=== PATIENT | male | born 1960 | race Caucasian/White ===

== ENCOUNTER 2017-04-11 11:56 | Day surgery (SDC) | payer OTHER ==
[2017-04-11] MEDS ORDERED: LACTATED RINGERS 1,000 ML IV ONE (12:24)
[2017-04-11] MEDS ORDERED: fentaNYL 100 MCG/2 ML VIAL IVP ONE (14:14)
[2017-04-11] MEDS ORDERED: MIDAZOLAM 2 MG/2 ML VIAL IVP ONE (14:14)
== END 2017-04-11 11:57 | disposition home or self-care (01) ==
PROC: 0DBM8ZX Excision of Descending Colon, Via Natural or Artificial Opening Endoscopic, Diagnostic (ICD-10-PCS; 2017-04-11)
PROC: 0DBK8ZX Excision of Ascending Colon, Via Natural or Artificial Opening Endoscopic, Diagnostic (ICD-10-PCS; principal; 2017-04-11 13:00)
DX: Z12.11 Encounter for screening for malignant neoplasm of colon (principal); D12.2 Benign neoplasm of ascending colon; D12.4 Benign neoplasm of descending colon; K64.8 Other hemorrhoids; F32.9 Major depressive disorder, single episode, unspecified; E78.00 Pure hypercholesterolemia, unspecified; G47.30 Sleep apnea, unspecified; Z87.891 Personal history of nicotine dependence
CPT/HCPCS: 45380; 45385; J7120

== ENCOUNTER 2018-04-22 07:22 | Outpatient (CLI) | payer OTHER ==
--- NOTE | 2018-04-22 12:12 | CT Report ---
CT CHEST WITHOUT CONTRAST: 04/22/2018 CLINICAL INDICATION: A 57-year-old asymptomatic patient with [id number] history of smoking, quit within the last 15 years, for screening. TECHNIQUE: Axial CT images of the chest were obtained without intravenous contrast, using low dose screening technique. COMPARISON: No previous chest CT is available for comparison. FINDINGS: The heart and great vessels are unremarkable. No hilar or mediastinal lymphadenopathy is present. The lungs demonstrate emphysema. No suspicious pulmonary nodule or mass lesion is present. No effusion or pneumothorax. Limited evaluation of the upper abdominal structures demonstrates normal adrenal glands. Osseous structures demonstrate degenerative changes. IMPRESSION: EMPHYSEMA. NO SUSPICIOUS PULMONARY NODULE OR MASS LESION. RECOMMENDATION: Continue annual screening with low dose CT in 12 months. LUNG RADS CATEGORY 1 - NEGATIVE. CT DOSE REDUCTION STATEMENT In accordance with CT protocol optimization, one or more of the following dose reduction techniques were utilized for this exam: automated exposure control, adjustment of mA and/or KV based on patient size, or use of iterative reconstructive technique. TD: 04/22/2018 12:00
--- NOTE | 2018-04-24 10:20 | Ultrasound Report ---
AORTA SCREENIN04/22/2018 CLINICAL INDICATION: Smoking history. TECHNIQUE: Real-time sonographic imaging was performed by the matcher through the aorta. Multiple hospital insurance representative static images were saved for review. FINDINGS: The abdominal aorta is normal in caliber, measuring 2.3 cm proximally , 2.0 cm in the mid portion, and 2.1 cm distally. The iliacs are normal in caliber. No free fluid is present. IMPRESSION: NO EVIDENCE OF ABDOMINAL AORTIC ANEURYSM. TD: 04/22/2018 11:19 MTDD
== END 2018-04-22 07:23 | disposition home or self-care (01) ==
LOC: DI 07:22
PROVIDERS: ATTEND Physician Assistant
DX: J43.9 Emphysema, unspecified (principal); Z87.891 Personal history of nicotine dependence
CPT/HCPCS: 76706; G0297

== ENCOUNTER 2018-05-29 08:39 | Outpatient (CLI) | payer OTHER ==
--- NOTE | 2018-05-29 09:26 | XRAY Report ---
Procedure Date: 05/29/2018 Accession Number: [id number] / [id number] Procedure: XRS - Cervical Spine Complete CPT Code: FULL RESULT: EXAM: Cervical Spine Complete DATE: 05/29/2018 9:06 AM CLINICAL HISTORY: CERVICAL RADICULOPATHY COMPARISON: 08/22/2016 TECHNIQUE: 7 views. FINDINGS: Alignment: Normal. No spondylolisthesis or scoliosis. No abnormal motion with flexion or extension. Bones: The cervical vertebral bodies and posterior elements are well visualized from the skull base through C7-T1. No fractures or bone lesions. Disks: Postoperative changes at C5-C6 and 6-7, stable from 08/22/2016. Bilateral osseous neural foraminal narrowing, worst at C6-7. Facets: Degenerative facet arthropathy. Soft Tissues: Normal. No prevertebral soft tissue swelling. The visualized lung apices are clear. IMPRESSION: Postoperative changes. Bilateral osseous neural foraminal narrowing, worst at C6-7. No evidence of interval fracture. No abnormal motion on flexion or extension to suggest ligamentous laxity. RADIA
== END 2018-05-29 08:40 | disposition home or self-care (01) ==
LOC: DI.S 08:39
PROVIDERS: ATTEND Student in an Organized Health Care Education/Training Program
DX: M47.892 Other spondylosis, cervical region (principal)
CPT/HCPCS: 72052

== ENCOUNTER 2018-06-10 08:22 | Outpatient (CLI) | payer OTHER ==
--- NOTE | 2018-06-10 13:10 | XRAY Report ---
Procedure Date: 06/10/2018 Accession Number: [id number] / [id number] Procedure: XR - Chest 2 View X-Ray CPT Code: 10471 FULL RESULT: EXAM: Chest 2 View X-Ray DATE: 06/10/2018 8:50 AM CLINICAL HISTORY: PREOP,HTN,EMPHYSEMA,FORMER SMOKER COMPARISON: 09/27/2015 TECHNIQUE: 2 views. FINDINGS: Lungs/Pleura: The lungs are hyperinflated, with emphysematous changes. No focal infiltrate, effusion, or pneumothorax. Mediastinum: Heart and mediastinal contours are unremarkable. Other: None. IMPRESSION: No evidence of acute cardiopulmonary disease. RADIA
== END 2018-06-10 08:23 | disposition home or self-care (01) ==
LOC: DI 08:22
PROVIDERS: ATTEND Physician Assistant
DX: J43.9 Emphysema, unspecified (principal); Z87.891 Personal history of nicotine dependence; I10 Essential (primary) hypertension
CPT/HCPCS: 71046

== ENCOUNTER 2019-04-09 07:18 | Outpatient (CLI) | payer OTHER ==
--- NOTE | 2019-04-09 10:25 | Ultrasound Report ---
Reason: DIZZINESS AND GIDDINESS Procedure Date: 04/09/2019 Accession Number: [id number] / [id number] Procedure: US - Carotid Doppler Complete CPT Code: FULL RESULT: EXAM: BILATERAL CAROTID AND VERTEBRAL ARTERY DUPLEX DOPPLER ULTRASOUND: EXAM DATE: 04/09/2019 07:49 AM CLINICAL HISTORY: Dizziness and giddiness. COMPARISON: None. TECHNIQUE: Grayscale imaging, color Doppler, and duplex spectral Doppler were used to evaluate the carotid and vertebral arteries bilaterally. Static images were obtained. FINDINGS: Visually, there is minimal atherosclerotic plaquing at both carotid bifurcations. No significant plaque is identified in the right or left common carotid arteries. Normal antegrade flow is present in bilateral vertebral arteries. VELOCITIES (cm/sec): Right CCA mid: PSV 85.1 cm/sec CCA dist: PSV 75.1 cm/sec ICA prox: PSV 91.1 cm/sec, EDV 32.9 cm/sec ICA mid: PSV 94.1 cm/sec, EDV 35.9 cm/sec ICA dist: PSV 91.9 cm/sec, EDV 32.1 cm/sec ECA: PSV 152.3 cm/sec Vert: PSV 39.7 cm/sec ICA/CCA: 1.1 Left CCA mid: PSV 133.3 cm/sec CCA dist: PSV 115.7 cm/sec ICA prox: PSV 89.6 cm/sec, EDV 33.1 cm/sec ICA mid: PSV 91.3 cm/sec, EDV 37.5 cm/sec ICA dist: PSV 89.1 cm/sec, EDV 37 cm/sec ECA: PSV 94.7 cm/sec Vert: PSV 50.3 cm/sec ICA/CCA: 0.7 ICA diameter stenosis: Right: <50% by velocity and <70% by NASCET criteria. Left: <50% by velocity and <70% by NASCET criteria. IMPRESSION: 1. No significant bilateral carotid artery plaquing. 2. In the right carotid artery there are no elevated carotid artery velocities to suggest hemodynamically significant stenosis. 3. In the left carotid artery there are no elevated carotid artery velocities to suggest hemodynamically significant stenosis. 4. Normal antegrade flow is present in bilateral vertebral arteries. General Recommendations: Stenosis =50% ICA - Follow-up ultrasound 6-12 months Stenosis <50% ICA - High Risk Patient with plaque - Follow-up ultrasound 1-2 years Normal Study but High Risk Patient - Follow-up ultrasound 3-5 years Management recommendations and diagnostic criteria are based on current IAC endorsed standards in Carotid Artery Stenosis: Grayscale and Doppler Ultrasound Diagnosis. Validated velocity measurements with angiographic measurements and velocity criteria are extrapolated from diameter data as defined by the Society of Radiologists in Ultrasound Consensus Conference Radiology 2003; 229;340-346. RADIA
--- NOTE | 2019-04-09 11:17 | CT Report ---
Reason: DIZZINESS AND GIDDINESS Procedure Date: 04/09/2019 Accession Number: [id number] / [id number] Procedure: CT - HEAD WO CPT Code: FULL RESULT: EXAM: CT HEAD EXAM DATE: 04/09/2019 07:23 AM. CLINICAL HISTORY: Dizziness and giddiness. COMPARISON: HEAD W/O 06/19/2013 3:19 PM. TECHNIQUE: Multiaxial CT images were obtained from the foramen magnum to the vertex. Reformats: Sagittal and coronal. IV contrast: None. In accordance with CT protocol optimization, one or more of the following dose reduction techniques were utilized for this exam: automated exposure control, adjustment of mA and/or KV based on patient size, or use of iterative reconstructive technique. FINDINGS: Parenchyma: No intraparenchymal hemorrhage. No evidence of mass, midline shift, or CT findings of infarction. Gipson-white differentiation is distinct. Extraaxial Spaces: Normal for age. No subdural or epidural collections identified. Ventricles: Normal in size and position. Sinuses and Orbits: Imaged paranasal sinuses, orbits, and mastoids show no significant abnormality. Bones: No evidence of fracture or calvarial defect. Other: None. IMPRESSION: Normal head CT. RADIA
== END 2019-04-09 07:19 | disposition home or self-care (01) ==
LOC: DI 07:18
PROVIDERS: ATTEND Physician Assistant
DX: R42 Dizziness and giddiness (principal)
CPT/HCPCS: 70450; 93880

== ENCOUNTER 2022-12-31 10:43 | Outpatient (CLI) | payer OTHER ==
--- NOTE | 2022-12-31 12:45 | Ultrasound Report ---
PROCEDURE: Aorta Screening INDICATIONS: EX SMOKER TECHNIQUE: Real time scanning was performed of the aorta and iliac arteries, with image documentatio n. COMPARISON: Ultrasound aorta 04/22/2018 FINDINGS: Aorta: Proximal aortic diameter measures 1.9 x 2.2 cm. Mid-aorta measures 2.1 x 2.3 cm. Distal aor tic diameter is 1.4 x 1.5 cm. Mild to moderate scattered plaque is noted. Iliac arteries: Right common iliac artery measures 1.2 x 1.3 cm. Left common iliac artery measures 0.9 x 1.0 cm. IMPRESSION: No abdominal aortic aneurysm. Reviewed by: Edward Antonio MD on 12/31/2022 12:44 PM PST Approved by: Edward Antonio MD on 12/31/2022 12:44 PM PST Station ID: [id number]
== END 2022-12-31 10:44 | disposition home or self-care (01) ==
LOC: DI 10:43
PROVIDERS: ATTEND Physician Assistant
DX: Z13.6 Encounter for screening for cardiovascular disorders (principal); Z87.891 Personal history of nicotine dependence

== ENCOUNTER 2023-01-17 08:42 | Outpatient (CLI) | payer OTHER ==
--- NOTE | 2023-01-17 12:08 | CT Report ---
PROCEDURE: Low Dose Lung Cancer Screen INDICATIONS: EX SMOKER TECHNIQUE: Noncontrast low-dose axial images were acquired from the pulmonary apices to the posterior costophren ic angles. Multiplanar MIP reformats were then reconstructed. For radiation dose reduction, the follo wing was used: automated exposure control, adjustment of mA and/or kV according to patient size. COMPARISON: Screening chest CT 04/22/2018 FINDINGS: Image quality: Excellent. Lungs and pleura: Moderate emphysematous change. Mild thickening at the right minor fissure, (10/95) , unchanged. Right middle lobe pulmonary nodule or nodular opacity measuring 0.3 cm, (4/223), new. No consolidation. The airways are essentially clear. No significant bronchiectasis. No pleural effusion . No pneumothorax. Mediastinum: Heart size is normal. Mild coronary artery calcifications. No pericardial effusion. N o mediastinal adenopathy by size criteria. Thoracic aorta and central pulmonary arteries are normal in size. Esophagus is normal in caliber. No hiatal hernia. Bones and chest wall: No suspicious bony lesions. Cervical spine hardware. No vertebral body compre ssion fractures. No axillary or supraclavicular adenopathy by size criteria. The thyroid is normal in size and there are no incidental findings. Abdomen: Visualized upper abdomen solid organs and bowel loops appear normal in the absence of contr ast. IMPRESSION: Right middle lobe pulmonary nodule or nodular opacity measuring 0.3 cm which is new compared to 2018. Lung RADS 2. Recommend follow-up lung cancer screening chest CT in 12 months. Reviewed by: Ronaldo Wilson MD on 01/17/2023 12:06 PM [facility] Approved by: Ronaldo Wilson MD on 01/17/2023 12:06 PM PST Station ID: [id number]
--- NOTE | 2023-01-17 12:47 | XRAY Report ---
PROCEDURE: Cervical Spine 2 View INDICATIONS: EX SMOKER, CERVICAL RADICULOPATHY TECHNIQUE: 3 view(s) of the cervical spine were acquired. COMPARISON: Cervical spine radiographs 05/29/2018, 08/22/2016. FINDINGS: Bones: ACDF at C5-C7. Posterior fixation at C5-C7. No hardware fracture. There is ankylosis at these levels. There is moderate degenerative change in the cervical spine. No fractures or dislocations to the C7 level. The lateral masses of C1 appear intact on the odontoid view. No suspicious bony lesi ons. Soft tissues: No prevertebral soft tissue swelling. IMPRESSION: Cervical spine fixation at C5-C7. Moderate degenerative change in the cervical spine. Reviewed by: Ronaldo Wilson MD on 01/17/2023 12:45 PM [facility] Approved by: Ronaldo Wilson MD on 01/17/2023 12:45 PM [facility] Station ID: [id number]
== END 2023-01-17 08:43 | disposition home or self-care (01) ==
LOC: DI 08:42
PROVIDERS: ATTEND Physician Assistant
DX: Z12.2 Encounter for screening for malignant neoplasm of respiratory organs (principal); R91.8 Other nonspecific abnormal finding of lung field; M47.812 Spondylosis without myelopathy or radiculopathy, cervical region; Z87.891 Personal history of nicotine dependence

== ENCOUNTER 2023-02-27 08:31 | Outpatient (CLI) | payer OTHER ==
--- NOTE | 2023-02-27 10:47 | CT Report ---
PROCEDURE: CERVICAL SPINE WO INDICATIONS: CERVICAL RADICULOPATHY TECHNIQUE: Noncontrast 3 mm thick sections acquired from the skull base to the T4 level. Sagittal and coronal r eformats were then constructed. For radiation dose reduction, the following was used: automated exp osure control, adjustment of mA and/or kV according to patient size. COMPARISON: X-ray cervical spine 01/17/2023, CT cervical spine 06/19/2013 FINDINGS: Image quality: Excellent. Bones: No fractures or dislocations. Visualized superior ribs are intact. There is overall appeara nce of cervical straightening. Anterior fusion is present at C5-6 and C6-7. Hardware appears intact. There is disc space height loss at C2-3, C3-4, C4-5 as well as C6-7. Minimal to mild disc osteophyte complexes are present at C3-4, C4-5, C5-6, C6-7. There is appearance of mild stenosis at C5-6 and C6- 7, improved compared to 2012. Moderate left foraminal narrowing C2-3, severe bilateral C3-4, severe l eft C4-5, moderate to severe right and mild left C5-6, moderate bilateral C6-7. Multilevel uncoverteb ral hypertrophy are present. Overall there has been mild progression of foraminal narrowing. Soft tissues: Prevertebral soft tissues are normal in thickness. No paravertebral hematomas. No ap ical pneumothoraces. IMPRESSION: Postsurgical anterior fusion. Multilevel foraminal narrowing, most severe at C3-4, C4-5 secondary to uncovertebral arthropathy. Reviewed by: Samra Morejon MD on 02/27/2023 10:46 AM PDT Approved by: Samra Morejon MD on 02/27/2023 10:46 AM PDT Station ID: [id number]
== END 2023-02-27 08:32 | disposition home or self-care (01) ==
LOC: DI 08:31
PROVIDERS: ATTEND Physician Assistant
DX: M47.812 Spondylosis without myelopathy or radiculopathy, cervical region (principal); M48.02 Spinal stenosis, cervical region; Z98.1 Arthrodesis status

== ENCOUNTER 2024-04-06 08:17 | Day surgery (SDC) | payer OTHER ==
[2024-04-06] MEDS: LACTATED RINGERS 1,000 ML IV ONE ×2 (08:31→11:24)
--- NOTE | 2024-04-06 10:49 | ANESTHESIA ---
Pre-Anesthesia VS, & Labs - Diagnosis SCREENING - Procedure COLONOSCOPY Vital Signs: Temp Pulse Resp BP Pulse Ox O2 Flow Rate 36.3 C L 58 L 17 151/66 H 99 04/06/24 08:31 04/06/24 08:31 04/06/24 08:31 04/06/24 08:31 04/06/24 08:31 Height: 5 ft 6 in Weight (kg): 75.5 kg Body Mass Index: 26.9 BMI Classification: Overweight - NPO Last Fluid Intake: 619 Last Food Intake: >8HR Home Medications and Allergies Home Medications: Ambulatory Orders Gabapentin 400 mg PO TID 04/03/24 Venlafaxine HCl [Effexor Xr] 150 mg ORAL DAILY 04/03/24 Hydrocodone/Acetaminophen [Vicodin Es 7.5-300 mg Tablet] 1 - 2 tab ORAL Q6HR PRN 04/11/17 Gabapentin 400 mg PO TID 04/03/24 Venlafaxine HCl [Effexor Xr] 150 mg ORAL DAILY 04/03/24 Allergies/Adverse Reactions: Allergies Allergy/AdvReac Type Severity Reaction Status Date / Time No Known Drug Allergies Allergy Verified 04/03/24 13:20 Anes History & Medical History - Anesthetic History Anesthesia Complications: reports: No previous complications Family history of Anesthesia Complications: Denies - Medical History Cardiovascular: reports: None Pulmonary: reports: Sleep apnea, CPAP use Gastrointestinal: reports: None Urinary: reports: None Musculoskeletal: reports: Chronic back pain, Other Endocrine/Autoimmune: reports: None Skin: reports: None Smoking Status: Current every day smoker Psychosocial: reports: No issues indicated (CHRONIC PAIN) - Surgical History Orthopedic: reports: Shoulder arthroplasty, Spine surgery Results - EKG Results EKG Comparison: Reviewed EKG Exam General: Alert Mouth Openin Fingerbreadth Neck Mobility: Reduced (CEREVICAL FUSION) Mallampati classification: II Thyromental Distance: 4-6 cm Plan Anesthesia Type: Total IV Consent for Procedure(s) Verified and Reviewed: Yes Code Status: Attempt Resuscitation ASA classification: 2-Mild systemic disease Is this case an emergency?: No
[2024-04-06] MEDS ORDERED: PROPOFOL 500 MG/50 ML 500 MG/50 ML VIAL ONE (10:54)
[2024-04-06] MEDS ORDERED: LIDOCAINE-MPF 2% 5 ML VIAL ONE (10:54)
[2024-04-06 11:57] VITALS: BP 137/66; O2SAT 97
--- NOTE | 2024-04-06 13:59 | ANESTHESIA POST OP EVALUATION ---
Anesthesia Post Eval - Post Anesthesia Eval Vitals: Last Vital Signs Temp 36.2 C L 04/06/24 11:24 Pulse 68 04/06/24 11:50 Resp 16 04/06/24 11:50 BP 137/66 H 04/06/24 11:50 Pulse Ox 97 04/06/24 11:50 O2 Flow Rate CV Function Including HR & BP: Stable Pain Control: Satisfactory Nausea & Vomiting: Negative Mental Status: Baseline Respiratory Status: Airway Patent Hydration Status: Satisfactory Anesthesia Complications: None
== END 2024-04-06 08:18 | disposition home or self-care (01) ==
LOC: SDS 08:17
PROVIDERS: ATTEND Surgery
PROC: 0DBL8ZZ Excision of Transverse Colon, Via Natural or Artificial Opening Endoscopic (ICD-10-PCS; principal; 2024-04-06 11:00)
DX: Z12.11 Encounter for screening for malignant neoplasm of colon (principal); D12.3 Benign neoplasm of transverse colon; F17.290 Nicotine dependence, other tobacco product, uncomplicated; K64.1 Second degree hemorrhoids; G47.30 Sleep apnea, unspecified
CPT/HCPCS: 45380; J7120

== ENCOUNTER 2024-05-26 10:45 | Outpatient (CLI) | payer OTHER ==
--- NOTE | 2024-05-26 11:52 | Sleep Patient Instructions ---
Sleep Center Visit Summary - Patient Visit Information Reason for Visit: Initial consultation - Patient Instructions Additional Instructions: You will continue with CPAP therapy with pressure set at 10-20 cmH2O. A supply prescription will be updated with your DME. I have added an order to update your PAP machine. Please call the office to schedule a compliance follow up once you get your new device. We encourage you to continue to try to lose weight. Please follow up with the sleep care office one month after obtaining new device. - Clinic Information Contact: Located within [facility] [address] [place] [address] [email or web address] T: [phone]
--- NOTE | 2024-05-26 11:57 | SLEEP CARE CONSULTATION ---
Information from patient questionnaire entered by Lydia Ni. I have reviewed and concur with the information entered by Lydia Ni. This document represents the service I personally performed and the decisions made by me, Padmaja Mitchell ARNP. History of Present Illness Service Date and Time: 05/26/2024 1045 Reason for Visit: New patient, Previously diagnosed sleep apnea, sleep apnea on CPAP therapy Chief Complaint: reports: Other (UPDATE SUPPLIES) Date of Onset: 8 yrs diagnosed Usual bedtime: 8-8:30 PM Time it takes to fall asleep: 20-30 minutes Snores at night: Yes (not with CPAP) Observed to quit breathing while asleep: Yes (not with CPAP) Sleeps alone due to snoring: No Number of times waking at night: 4-5 Reasons for waking at night: reports: Pain, Other (machine is noisy) Toss, Turn, or Twitch while sleeping: No Recalls having dreams: Yes Usually gets out of bed at: 0530 Feels refreshed in the morning: No Morning headache: No Sleepy or fatigued during the day: Yes Ever fallen asleep while driving: No Takes day naps: Yes (daily for couple hours) Dreams during day naps: No Prior sleep studies: Yes Year and Where: [facility], [place] 2015 Type of Sleep Study: Home sleep study Additional HPI information: MAHESH MOON was previously diagnosed to have severe, AHI 30, obstructive sleep apnea-hypopnea syndrome as seen in HST dated 03/07/2016 through [facility] in [place], [place] and comes in today to establish care for CPAP therapy. - Parasomnia Symptoms Ever been unable to move upon waking from sleep: No Walks in sleep: No (used to a long time ago) Talks in sleep: No Ever acted out dreams in sleep: No Ever felt weak in the knees when startled or emotional: No Bothered by creepy, crawly, restless sensations in legs: Yes (legs jerk, has RLS meds which helps) Problems with memory or concentration: Yes CPAP Compliance Data - Data Reviewed with Patient Average duration of nightly device use: 9 hours 30 minutes Compliance rate %: 100 (90/90 days used) Current pressure setting (cmH2O): 10-20 Average residual AHI: 1 Central apnea: 0.1 Obstructive apnea: 0.4 Hypopnea: 0.2 Average large leak: 25.8 L/min Compliance data discussion: He has a Airsense 10 that was received in 06/05/2016. He is getting his supplies from [employer]. He is using a nasal pillows mask. Subjective Patient concerns: reports: mask leak noise, other (machine is loud). denies: aerophagia, mask discomfort, air blowing in eyes, condensation in mask/hose, nasal congestion, dry mouth, nose, throat, epistaxis Observed to snore while using device: No Current pressure setting perceived as: comfortable (to too low) On therapy, patient: reports: sleeping better, awakening more refreshed, being more awake and alert during the day, more rested overall. 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 Patient is and lives in [place]. Have you smoked in the past 12 months: Yes (occasional cigs now and then) Cigarettes per day (20/pack): 20 Years of smokin Quit date: 03/2014 Smoking Pack Years: 40.0 Alcohol use: No Caffeine use: Yes Caffeine amount and frequency: 5 CUPS QD Family History Family history of sleep disordered breathing: No Family Hx Sleep Apnea: Father: Snoring Allergies and Home Medications Known drug allergies: No Drug allergies reviewed: Yes Home medication list reviewed: Yes (as listed) Allergy and home medication list: Allergies No Known Drug Allergies Allergy (Verified 05/22/24 10:04) Home Medications Medication Instructions Recorded Confirmed Last Taken Type DULoxetine [Cymbalta] See Rx Instructions .ROUTE .COMPLEX 05/26/24 05/26/24 Unknown History Gabapentin See Rx Instructions .ROUTE .COMPLEX 05/26/24 05/26/24 Unknown History HYDROcodone/ACET 10/325 [G[place] 10 See Rx Instructions .ROUTE .COMPLEX 05/26/24 05/26/24 Unknown History mg/325 mg] Tamsulosin HCl [Flomax] See Rx Instructions .ROUTE .COMPLEX 05/26/24 05/26/24 Unknown History Review of Systems Weight gain over past 5 years: 10 Cardiovascular: denies: high blood pressure Gastrointestinal: denies: heartburn Neurological: denies: headaches Psychiatric: reports: depression, claustrophobia Musculoskeletal: reports: neck pain, back pain Immunologic: reports: sneezing Physical Exam Vital signs obtained and entered by: LYDIA Cole MA Blood Pressure: 137/74 (RIGHT ARM) Cuff size: regular Heart Rate: 70 O2 Saturation: 98 Height: 5 ft 5 in Weight: 166 lb 6.4 oz Body Mass Index: 27.6 BMI Classification: Overweight Neck circumference: 16.25 Heart: regular rate and rhythm Lungs: clear bilaterally Impression and Plan 1. Obstructive Sleep Apnea-Hypopnea Syndrome, severe, with good treatment compliance and good apnea control. On CPAP therapy, the patient has better sleep quality and is more rested overall. He has machine is an AirSense 10 that he received in 2016. He says it is making a lot of noise and he has to put it on the floor because the noise will wake him up. The patients CPAP is over 5 years old and of reasonable use. In addition, it is starting to make louder noise, a sign of malfunction. Thus, the CPAP will be updated. A DWO prescription will be made. Compliance guidelines for new device and follow up discussed. Patient's apnea severity and rationale for treatment to reduce apnea, improve sleep quality and reduce cardiovascular and cerebrovascular events was reviewed. I also reviewed the benefit of consistent device use of CPAP for mood disorder. 2. Overweight, unspecified. Currently patients BMI is 27.6. Obesity increases the risk of apnea, CPAP pressure requirements and overall health risks especially cardiovascular and diabetes. Thus patient is advised to lose weight. * Continue auto CPAP pressure at 10-20 cmH2O * Update machine * Update supply prescription * Notify me if snoring with mask or feeling that the pressure is too much or too little * Attempt to lose weight * Call this office if any problems using CPAP * Return for follow up one month after obtaining new CPAP, or sooner if concerns arise Counseling Topics: Spare mask Prescriptions: Auto CPAP, Device supplies Plan: update CPAP and compliance follow up Visit Type: In Office Time Spent with Patient (minutes): 32 Provider Statement: I spent 100% of the Face to Face Visit with the patient with greater than 50% spent counseling the patient and coordination of care.
[2024-05-26 12:01] VITALS: BP 137/74; O2SAT 98
== END 2024-05-26 10:46 | disposition home or self-care (01) ==
LOC: SC 10:45
PROVIDERS: ATTEND Nurse Practitioner Family
DX: G47.33 Obstructive sleep apnea (adult) (pediatric) (principal); F17.200 Nicotine dependence, unspecified, uncomplicated; E66.3 Overweight; Z68.27 Body mass index [BMI] 27.0-27.9, adult
CPT/HCPCS: 99203; 99212

== ENCOUNTER 2024-08-26 07:09 | Outpatient (CLI) | payer OTHER ==
--- NOTE | 2024-08-26 16:38 | CT Report ---
PROCEDURE: Cervical Spine WO INDICATIONS: CERVICAL STENOSIS TECHNIQUE: Noncontrast 3 mm thick sections acquired from the skull base to the T4 level. Sagittal and coronal r eformats were then constructed. For radiation dose reduction, the following was used: automated exp osure control, adjustment of mA and/or kV according to patient size. COMPARISON: None. FINDINGS: Image quality: Excellent. Bones: There is straightening of normal cervical lordosis. No fractures or dislocations. There is pr ior anterior fusion at C5-C7 levels with near complete bony union at these levels. No gross hardware loosening or failure. Osteoarthritic changes are noted involving articulation between the dens and an terior arch of C1. Visualized superior ribs are intact. C2-3: Degenerative endplate changes are seen. Broad-based disc bulge and bilateral uncovertebral hype rtrophic changes are seen with mild central canal stenosis, moderate to severe left-sided neural fora scotty narrowing and mild left-sided neural foraminal narrowing. C3-4: Degenerative endplate changes are seen. Broad-based disc bulge and bilateral uncovertebral hype rtrophic changes are seen with mild central canal stenosis, severe right-sided neural foraminal narro wing and moderate left-sided neural foraminal. C4-5: There is degenerative endplate changes. Left worse than right bilateral uncovertebral hypertrop hic changes are seen causing severe left-sided neural foraminal narrowing and mild right-sided neural foraminal narrowing. No significant central canal stenosis. C5-6: Postsurgical changes are seen. Bilateral uncovertebral hypertrophic changes are seen causing se sabina left-sided neural foraminal narrowing and mild right-sided neural foraminal narrowing. No signif icant central canal stenosis. C6-7: Postsurgical changes are seen. Dorsal disc osteophyte complex formation is noted. Bilateral unc overtebral hypertrophic changes also noted. There is moderate central canal stenosis and moderate godwin ateral neural foraminal narrowing. C7-T1: Within normal limits. Soft tissues: Prevertebral soft tissues are normal in thickness. No paravertebral hematomas. No ap ical pneumothoraces. IMPRESSION: 1. 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 No gross hardware loosening or failure. S traightening of normal cervical lordosis. No acute fracture or dislocation. 2. Degenerative disc disease and bilateral uncovertebral hypertrophic changes throughout cervical spi ne causing various degrees of central canal stenosis and bilateral neural foraminal narrowing as desc ribed in detail above. 3. No gross paraspinous soft tissue abnormalities. Reviewed by: uMkund Patel MD on 08/26/2024 4:36 PM PDT Approved by: Mukund Patel MD on 08/26/2024 4:36 PM PDT Station ID: [id number]
== END 2024-08-26 07:10 | disposition home or self-care (01) ==
LOC: DI 07:09
PROVIDERS: ATTEND Student in an Organized Health Care Education/Training Program
DX: M47.812 Spondylosis without myelopathy or radiculopathy, cervical region (principal); M50.31 Other cervical disc degeneration, high cervical region; M48.02 Spinal stenosis, cervical region

== ENCOUNTER 2024-08-26 07:09 | Outpatient (CLI) | payer OTHER ==
--- NOTE | 2024-08-26 18:09 | CT Report ---
PROCEDURE: Lung Cancer Screen INDICATIONS: LUNG CA SCREENING TECHNIQUE: A CT scan of the chest was performed. Intravenous contrast media was not administered. Images were re corded and evaluated at appropriate window settings. Reformats: axial MIP of the chest, coronal and s agittal. For radiation dose reduction, the following was used: automated exposure control, adjustment of mA and/or kV according to patient size. COMPARISON: 01/17/2023, 04/22/2018 FINDINGS: Image quality: Excellent. Prior cancer history: None given. Lungs and pleura: There is mild irregular nodular opacity seen within the right middle lobe, as seen on series 4 images 73 and 74. This is not significantly changed compared to the prior examination. Th ere is a minimal degree of thickening seen along the right minor fissure, which is also unchanged. No new pulmonary nodules are seen. No focal infiltrates are seen. Underlying emphysema this changes are seen. Mediastinum: Heart size is normal. No pericardial effusion. No large vessel abnormality. No mediastin al adenopathy by size criteria. Chest wall and lower neck: Thyroid is unremarkable. No axillary or supraclavicular adenopathy by size . Bones: No aggressive osseous abnormality. Age-appropriate degenerative changes are seen. Upper Abdomen: Unremarkable. IMPRESSION: There is stable thickening seen along the right minor fissure and there is a stable nodul ar opacity within the right middle lobe. No new concerning nodule can be seen. Lung RAD: 2 - Benign. Recommendation: Recommend annual low-dose CT chest screening examinations, as long as the patient spencer ts the published screening criteria. Reviewed by: Agustin Spivey MD on 08/26/2024 5:08 PM [facility] Approved by: Agustin Spivey MD on 08/26/2024 5:08 PM [facility] Station ID: [id number]
== END 2024-08-26 07:10 | disposition home or self-care (01) ==
LOC: DI 07:09
PROVIDERS: ATTEND Registered Nurse
DX: Z12.2 Encounter for screening for malignant neoplasm of respiratory organs (principal); J43.9 Emphysema, unspecified; R91.8 Other nonspecific abnormal finding of lung field